=== PATIENT | male | born 1950 | race Caucasian/White ===

== ENCOUNTER 2022-04-04 14:25 | Emergency (ER) | payer MEDICARE, BC ==
[~2022-04-04] VITALS: Ht 182.9 cm; Wt 87.7 kg
[2022-04-04] MEDS ORDERED: NORVASC 5MG5 MG/TAB PO (14:43)
[2022-04-04] MEDS ORDERED: ZESTRIL20 M1 PO (14:43)
[2022-04-04] MEDS ORDERED: ASPIRIN E.C. 8181 MG PO (14:44)
[2022-04-04] MEDS ORDERED: B12 ACTIVE1000 MCG PO (14:44)
[2022-04-04] MEDS ORDERED: ARICEPT5 M1 PO (14:44)
[2022-04-04] MEDS ORDERED: CRESTOR5 MG PO (14:45)
[2022-04-04] MEDS ORDERED: ZYLOPRIM 100MG100 MG PO (14:45)
[2022-04-04] MEDS ORDERED: ULTRAM50 M1 PO (14:46)
[2022-04-04 17:08] VITALS: BP 137/78
== END 2022-04-04 17:10 | disposition home or self-care (01) ==
LOC: ED 14:25
DX: S01.111A Laceration without foreign body of right eyelid and periocular area, initial encounter (principal); S80.211A Abrasion, right knee, initial encounter; S50.311A Abrasion of right elbow, initial encounter; W10.1XXA Fall (on)(from) sidewalk curb, initial encounter; W22.8XXA Striking against or struck by other objects, initial encounter
CPT/HCPCS: 90715